=== PATIENT | male | born 1970 | race Caucasian/White ===

== ENCOUNTER → 2023-07-01 | Day surgery (SDC) | payer MEDICAID ==
[~2023-07-01] VITALS: Ht 190.5 cm; Wt 99.8 kg
[~2023-07-01] MED LIST: BACITRACIN 14GM TUBE TOP ONE; BUPIVACAINE HCL/PF 0.5% (5MG/ML) 10ML ONE; FENTANYL CITRATE/PF 50MCG/ML 2ML VIAL ONE; LACTATED RINGERS 1,000 ML IV SCH; METH5TAB4 PO; MIDAZOLAM HCL 2 MG/2 ML VIAL ONE; MULT-622 PO; PROPOFOL 200MG/20ML VIAL IV ONE
[2023-07-01 16:17] VITALS: BP 144/99; PULSE 67; RESP 16
[2023-07-01] MEDS: HYDROCODONE/ACETAMINOPHEN 5/325MG TABLET PO NR (16:17)
== END | disposition home or self-care (01) ==
LOC: OR 08:43
PROVIDERS: ATTEND Surgery
DX: K64.8 Other hemorrhoids (principal); F41.9 Anxiety disorder, unspecified; F32.9 Major depressive disorder, single episode, unspecified; Z79.899 Other long term (current) drug therapy; Z98.890 Other specified postprocedural states
CPT/HCPCS: 46250; 88304; J3010; J3490; J2250; J2704; J7120